=== PATIENT | male | born 1970 | race Caucasian/White ===

== ENCOUNTER 2017-05-14 16:45 | Emergency (ER) | payer SELFPAY ==
[2017-05-14] MEDS ORDERED: KETOROLAC TROMETHAMINE 60 MG/2 ML VIAL IM ONE ×2 (16:57→17:09)
--- NOTE | 2017-05-14 17:09 | ERNOTE ---
Lower Extremity HPI - General Lower Extremities Pain: knee: right Time Seen by Provider: 05/14/17 16:48 Source: patient Exam Limitations: no limitations - Immun/Allergies/Home Medications Immunizations: IMMUNIZATION HX Immunizations Up to Date Yes History of Influenza Vaccine No Hx Pneumococcal Vaccination No Allergies/Adverse Reactions: Allergies Allergy/AdvReac Type Severity Reaction Status Date / Time Penicillins Allergy Mild Verified 05/14/17 16:57 Home Medications: HOME MEDICATIONS Naproxen [Naprosyn] 500 mg PO BID #60 tablet 05/14/17 [Last Taken Unknown] - History of Present Illness Narrative: Patient started to have right knee pain two days ago. He denies any injury. he has a history of gout and also had to have his right knee 'washed out in the OR ' a few years ago. He has been out of his allopurinol for a few months but when the pain started took a few of his mothers allopurinol, tried ibuprofen yesterday with minimal relieve, rarely drinks but had a beer about 3-4 days ago. Date (Duration): 05/12/17 Occurred: other Method of Injury: Reports: no apparent injury Modifying Factors - (Improves): Reports: pain medication, rest Modifying Factors - (Worsens): Reports: movement Associated Symptoms: Denies: unable to bear weight, snapping, popping sensation Other Injuries: Reports: none Subsequent Symptoms: Denies: sensory loss, numbness Prior Treament: Reports: similar symptoms before. Denies: recently seen Review of Systems - Review of Systems Constitutional: Present: chills. Absent: recent illness ENT: Absent: nose congestion, sore throat Respiratory: Absent: other Gastrointestinal/Abdominal: Absent: nausea, abdominal pain Genitourinary: Present: no symptoms reported Musculoskeletal: Present: See HPI Skin: Absent: rash Neurological: Absent: headache, weakness, numbness - Patient's Past Medical History Patient History - Medical: Other - gout Patient History - Cardiac/Respiratory: No pertinent hx Patient History - Cancer: No Hx of Cancer Patient History - Surgical Procedures: Other Patient History - Other: None - Social History Living Situations: home Abuse History: No History of abuse, Hx of Substance Use Psych History: No pertinent hx Smoking Status: Current every day smoker Have you smoked in the past 12 months: Yes Alcohol Use: occasionally Drug Use: marijuana - Immunizations Immunizations Up to Date: Yes Hx Pneumococcal Vaccination: No History of Influenza Vaccine: No Physical Exam - Physical Exam General Appearance: Present: wd/wn, alert, no apparent distress Respiratory: Present: no respiratory distress, normal breath sounds, no accessory muscle use, lungs clear Cardiovascular/Chest: Present: regular rate, rhythm, no murmur Extremity Exam: Present: normal except - - left knee mild erythema, joint effusion, mild tenderness throughout, pain on ROM, , no edema Neurological Exam: Present: alert, oriented, normal mood/affect, no motor/ sensory deficits Skin Exam: Present: normal color, warm/dry ED Progress - Results and Orders Patient's Lab Results:: I have reviewed the patient's lab results. - Vital Signs Patient's Vital Signs:: I have reviewed the patient's vital signs. Vital Signs: Vital Signs 05/14/17 16:49 Temperature 37.3 C Pulse Rate 94 Respiratory 16 Rate Blood Pressure 145/88 O2 Sat by Pulse 97 Oximetry - X-Ray X-Ray #1 X-Ray: knee - effusion, no acute bony changes Interpretation: Interp. by me - Progress/Reassessment Chief Complaint: Lower Extremity Pain/ Injury Progress Note-Subjective: 05/14/17 17:34 Patient right knee was aspirated: skin cleaned with betaiodine, sterile technique used, local with 1% lidocaine knee aspirated with 16 gauge needle, 20ml of serous fluid aspirated patient tolerated procedure well 05/14/17 18:43 better after toradol discussed test results and follow up Departure Clinical Impression: Knee effusion, right, Arthritis - Departure Disposition: Home self-care Condition: Good Instructions: Arthritis, [id number] Additional Instructions: keep the knee wrapped for support take the naproxen for pain, you may take tylenol in addition to that but no ibuprofen if you don't get better over the next 3-4 days call the orthopedic clinic for follow up Referrals: Mal Chang, PAC [[facility]] - Prescriptions: Naproxen [Naprosyn] 500 mg PO BID #60 tablet
[2017-05-14 17:10] LABS: Hematocrit 41.3 % (42.0-52.0); Mean Cell Volume 89.2 fl (78-100); Mean Corpuscular Hemoglobin 30.2 pg (27-31); Mean Corpuscular Hgb Conc 33.9 g/dl (32-36); Mean Platelet Volume 9.9 fl (6.0-9.5); Neutrophil # 7.4 K/mm3 (1.3-6.0); Neutrophil % 64.6 % (42-75.0); Platelet Count 267 K/mm3 (150-450); Red Blood Count 4.63 M/mm3 (4.7-6.0); Red Cell Distribution Width 13.7 % (11.5-14.0); White Blood Count 11.5 K/mm3 (4.0-10.5)
[2017-05-14 17:23] LABS: Albumin * 3.6 gm/dl (3.4-5.0); Anion Gap 12.1 mmol/L (6.8-13.8); BUN/Creatinine Ratio 8.1 (9.0-21.6); Bilirubin, Total 0.5 mg/dL (0.0-1.1); CRP 5.5 mg/dL (0.0-0.9); Ca. Corrected For Albumin 8.7 mg/dL (8.4-10.2); Calcium * 8.7 mg/dL (7.9-10.9); Carbon Dioxide 30.7 mmol/L (24-32.6); Potassium 3.8 mmol/L (3.4-4.6); Total Protein 7.2 gm/dL (6.2-8.2); Uric Acid 5.1 mg/dL (2.6-7.2)
[2017-05-14 18:12] LABS: Body Fluid WBC 956 /uL
[2017-05-14 18:58] VITALS: BP 130/70
[2017-05-14 20:02] LABS: Body Fluid Appearance CLEAR (CLEAR); Body Fluid Color YELLOW (COLORLESS)
== END 2017-05-14 18:45 | disposition home or self-care (01) ==
LOC: ER 16:45
PROC: 0S9C3ZZ Drainage of Right Knee Joint, Percutaneous Approach (ICD-10-PCS; principal; 2017-05-14)
DX: M25.461 Effusion, right knee (principal); M19.90 Unspecified osteoarthritis, unspecified site; F17.200 Nicotine dependence, unspecified, uncomplicated

== ENCOUNTER 2019-04-09 19:32 | Observation (INO) ==
[2019-04-09] MEDS ORDERED: NITROGLYCERIN 0.4 MG/TAB BTL SL PRN (19:42)
--- NOTE | 2019-04-09 19:51 | ERNOTE ---
Chest Pain/Cardiac HPI Date of Service: 04/09/19 Chief Complaint: Chest Pain Time Seen by Provider: 04/09/19 19:34 Source: patient Exam Limitations: no limitations Immunizations: IMMUNIZATION HX Immunizations Up to Date Yes History of Influenza Vaccine Yes Hx Pneumococcal Vaccination No Allergies/Adverse Reactions: Allergies Penicillins Allergy (Mild, Verified 04/09/19 19:42) rash, hives Home Medications: HOME MEDICATIONS allopurinol 300 mg tablet 300 mg PO DAILY #30 tab 10/28/18 [Last Taken Unknown] Aspirin [Aspirin Chewable] 81 mg PO DAILY 01/06/19 [Last Taken Unknown] Clopidogrel Bisulfate [Plavix] 75 mg PO DAILY 01/06/19 [Last Taken Unknown] Furosemide [Lasix] 40 mg PO DAILY 01/06/19 [Last Taken Unknown] Propranolol HCl [Inderal] 10 mg PO BID 01/22/19 [Last Taken Unknown] desvenlafaxine succinate ER 25 mg tablet,extended release 24 hr 25 mg PO HS #30 tab 02/17/19 [Last Taken Unknown] mirtazapine 15 mg tablet See Rx Instructions .ROUTE .COMPLEX #30 tablet 03/05/19 [Last Taken Unknown] mirtazapine 30 mg tablet 15 mg PO HS #30 tab 03/05/19 [Last Taken Unknown] olanzapine 5 mg tablet See Rx Instructions .ROUTE .COMPLEX #30 tablet 03/05/19 [Last Taken Unknown] temazepam 30 mg capsule 30 mg PO PRN PRN #30 cap 03/05/19 [Last Taken Unknown] Pain Score #1 Pain Score: 4 Narrative: The patient is a 48 year old male who presents for left anterior chest pain which has been present since 1699. There are associated symptoms of dyspnea and dizziness. The patient reports left anterior chest pain, 10/30. There are no alleviating factors. There are aggravating factors of activity. Previous treatments have included: Nitro and ASA 325mg po given by EMS [employer]. Patient states Nitro aided with pain. The past medical history includes: depression, HLD, anxiety and DM. Patient reports 2 month post aortic valve replacement. The social history is positive for current tobacco use. The patient has had no ill contacts. Patient states he was up making supper when he had abrupt onset of dizziness and near syncope. Patient states he ate supper thinking it would help with symptoms and then developed chest pain and dyspnea. Patient states he began coughing to the point "he was unable to catch his breath". Review of Systems - Review of Systems Constitutional: Present: no symptoms reported. Absent: recent illness, fever, fatigue EYE: Present: no symptoms reported ENT: Present: no symptoms reported. Absent: ear pain, nasal drainage, sore throat Respiratory: Present: shortness of breath, cough Cardiology: Present: chest pain Gastrointestinal/Abdominal: Present: no symptoms reported. Absent: nausea, vomiting, diarrhea, abdominal pain, eating less, drinking less Genitourinary: Present: no symptoms reported. Absent: dysuria Musculoskeletal: Present: no symptoms reported Skin: Present: no symptoms reported. Absent: rash Neurological: Present: dizziness/light-headedness All Other Systems: All systems neg except as marked Medical History (Updated 03/07/19 @ 22:36 by Houston Garza MD) Type II diabetes mellitus (Chronic) Hyperlipidemia (Chronic) Insomnia (Chronic) Abdominal bloating (Acute) Started after his aortic valve deployment. Anxiety Cardiac abnormality Constipation Depression Gout Onset Date: Unknown Headache Hyperlipidemia Insomnia Irregular heart beat Left knee pain Onset Date: ~05/2018 Surgical History: Surgical History (Updated 01/09/19 @ 18:09 by Sourav Esquivel DO) Encounter for follow-up for aortic valve replacement (Acute) Aortic valve replaced (Resolved) Onset Date: 12/2018 H/O heart artery stent (Acute) Onset Date: ~01/02/19 History of right knee surgery Onset Date: Unknown Family History: Family History (Updated 06/24/18 @ 08:53 by Lilli Christopher) Mother Arthritis Diabetes Gout Hypertension CVA (cerebral vascular accident) Brother Gout Sister Arthritis Other No pertinent family history Social History: (Last Reviewed 04/09/19 @ 19:48 by LOUISA Paulino) Social History: Marital status: Single household members: children current occupational status: unemployed Service: No Tobacco: Smoking Status: Current every day smoker tobacco type: cigarettes Smoking cigarettes per day: 10.0 Smoking packs per day: 0.5 Alcohol: alcohol intake: former Substance Use: substance use type: does not use Dietary Habits: caffeine: Yes caffeine comment: coffe, soda, energy drinks Type: coffee, carbonated beverages Physical Exam - Physical Exam General Appearance: Present: wd/wn, alert, no apparent distress Head Exam: Present: normal inspection, no evidence of injury Eye Exam: Normal inspection: bilateral Neck: Present: normal inspection Respiratory: Present: no respiratory distress, no accessory muscle use, chest tenderness - left anterior chest, decreased breath sounds Cardiovascular/Chest: Present: no murmur, tachycardia Gastrointestinal/Abdominal: Present: normal bowel sounds, nontender, nondistended, soft, no organomegaly Extremity Exam: Present: no edema Neurological Exam: Present: alert, oriented, normal mood/affect, no motor /sensory deficits Skin Exam: Present: normal color, warm/dry Progress - Date and Time Seen: Date and Time: 04/09/19 21:15 Discussed case with , will admit for observation chest pain. - Results and Orders Patient's Lab Results:: I have reviewed the patient's lab results. - Vital Signs Patient's Vital Signs:: I have reviewed the patient's vital signs. Vital Signs: Vital Signs 04/09/19 19:38 Temperature 37.1 C Pulse Rate 101 H Respiratory Rate 17 Blood Pressure 120/84 O2 Sat by Pulse Oximetry 94 - EKG EKG #1 EKG: NSR EKG read: Reviewed by me - X-Ray X-Ray #1 X-Ray: chest Interpretation: Reviewed by me X-ray Comments: No acute cardiopulmonary abnormalities. - Progress/Reassessment Chief Complaint: Chest Pain Progress:: Improved Progress Note-Subjective: 04/09/19 21:15 2/10 left anterior chest pain after administration of Nitro SL. Departure Clinical Impression: Chest pain Qualifiers: Chest pain type: unspecified Qualified Code(s): R07.9 - Chest pain, unspecified - Departure Disposition: Still a patient Condition: Good
[2019-04-09 20:06] LABS: Hemoglobin 14.3 gm/dL (13.5-18.0); Mean Cell Volume 88.7 fl (78-100); Mean Corpuscular Hemoglobin 29.5 pg (27-31); Mean Corpuscular Hgb Conc 33.3 g/dl (32-36); Mean Platelet Volume 9.6 fl (8-11.3); Neutrophil # 5.9 K/mm3 (1.3-6.0); Neutrophil % 54.6 % (42-75.0); Platelet Count 230 K/mm3 (150-450); Red Blood Count 4.85 M/mm3 (4.7-6.0); Red Cell Distribution Width 14.5 % (11.5-14.0); White Blood Count 10.9 K/mm3 (4.0-10.5)
[2019-04-09 20:15] LABS: Prothrombin Time (Patient) 10.1 Seconds (9.1-10.7)
[2019-04-09 20:17] LABS: INR 1.02 INR (0.92-1.08); Partial Thrombolplastin Time 26.6 Seconds (24-32)
[2019-04-09 20:21] LABS: ALT 80 U/L (19-67); AST 54 U/L (0-48); Albumin * 3.6 gm/dl (3.4-5.0); Alkaline Phosphatase * 115 U/L (50-170); Anion Gap 14.1 mmol/L (6.8-13.8); BUN/Creatinine Ratio 7.6 (9.0-21.6); Bilirubin, Total 0.2 mg/dL (0.0-1.1); Blood Urea Nitrogen 8 mg/dL (6-23); Ca. Corrected For Albumin 8.7 mg/dL (8.4-10.2); Calcium * 8.7 mg/dL (7.9-10.9); Carbon Dioxide 27.9 mmol/L (24-32.6); Chloride 103 mmol/L (97-106); Glucose * 142 mg/dL (70-110); Sodium 142 mmol/L (132-142); Total Protein 6.8 gm/dL (6.2-8.2)
[2019-04-09 20:22] LABS: Troponin I Less than 0.017 ng/mL (0.00-0.10)
[2019-04-09 20:52] LABS: Urine Bilirubin Negative (NEGATIVE); Urine Blood Negative /ul (NEGATIVE); Urine Ketone Negative (NEGATIVE); Urine Nitrite Negative (NEGATIVE); Urine Protein Negative (NEGATIVE); Urine Specific Gravity <=1.005 SP.GR. (1.005-1.030); Urine Urobilinogen Normal (NORMAL)
[2019-04-09 20:58] LABS: Urine Appearance Clear (CLEAR); Urine Bacteria None Seen; Urine Color Yellow; Urine RBC None Seen /hpf (0-5); Urine WBC None Seen /hpf (0-5)
[2019-04-09] MEDS ORDERED: ROSUVASTATIN CALCIUM 20 MG TABLET PO STA (21:32)
--- NOTE | 2019-04-10 08:34 | HPDIS ---
Chief Complaint - Chief Complaint Date of Service: 04/10/19 Time of Service: 08:34 Chief Complaint: CHEST PAIN History of Present Illness: Sourav Novak is a 48-year-old white male patient of Dr. Esquivel, with past medical history of aortic valve replacement, anxiety and depression, diabetes mellitus type 2, who was admitted on 04/09/2019 because of chest pain. His chest pain was pressure-like 4/10 substernal radiating to his jaw associated with dyspnea and dizziness. The patient said that 1-1/2 hours before sitting down for dinner the patient took an energy drink which is 2-3 times stronger than red bull. As he was about to start eating, he started getting dizzy as if he was going to pass out, felt he could not take his breath, and then developed the chest pain. EMS was called and he got nitro and aspirin and then when he got to the emergency room and got again aspirin. His EKG showed normal sinus rhythm, inferior myocardial infarction, age indeteminate and his troponin was negative. He was then admitted for observation. His follow-up troponin was negative and patient has been chest pain-free. He is stable to be discharged today and will schedule him as stress test as an outpatient. He will follow-up with his [facility] physician Dr. Esquivel. Medical History (Updated 04/10/19 @ 09:01 by Zia Sams MD) Type II diabetes mellitus (Chronic) Hyperlipidemia (Chronic) Insomnia (Chronic) Abdominal bloating (Acute) Started after his aortic valve deployment. Anxiety Cardiac abnormality Constipation Depression Gout Onset Date: Unknown Headache Hyperlipidemia Insomnia Irregular heart beat Left knee pain Onset Date: ~05/2018 Surgical History: Surgical History (Updated 04/10/19 @ 09:01 by Zia Sams MD) Encounter for follow-up for aortic valve replacement (Acute) Aortic valve replaced (Resolved) Onset Date: 12/2018 H/O heart artery stent (Chronic) Onset Date: ~01/02/19 History of right knee surgery Onset Date: Unknown Family History: Family History (Updated 06/24/18 @ 08:53 by Lilli Christopher) Mother Arthritis Diabetes Gout Hypertension CVA (cerebral vascular accident) Brother Gout Sister Arthritis Other No pertinent family history Social History: (Last Reviewed 04/09/19 @ 19:48 by LOUISA Paulino) Social History: Marital status: Single household members: children current occupational status: unemployed Service: No Tobacco: Smoking Status: Current every day smoker tobacco type: cigarettes Smoking cigarettes per day: 10.0 Smoking packs per day: 0.5 Alcohol: alcohol intake: former Substance Use: substance use type: does not use Dietary Habits: caffeine: Yes caffeine comment: coffe, soda, energy drinks Type: coffee, carbonated beverages Review Of Systems (GEN) - Review of Systems Generalized/Overall Review: Absent: Weakness, Chills, Fever EENTM: Absent: Blurred Vision Respiratory: Present: Shortness of Breath. Absent: Cough Cardiac: Present: Chest Pain. Absent: Edema, Palpitations Abdominal: Absent: Nausea, Vomiting Genitourinary: Absent: Urgency, Frequency Musculoskeletal: Absent: Joint Pain, Back Pain Neurological: Absent: Headache Endocrine: Absent: Intolerance to Cold, Intolerance to Heat Immunizations: IMMUNIZATION HX Immunizations Up to Date Yes History of Influenza Vaccine Yes Hx Pneumococcal Vaccination No Allergies/Adverse Reactions: Allergies Allergy/AdvReac Type Severity Reaction Status Date / Time Penicillins Allergy Mild rash, hives Verified 04/09/19 19:42 Home Medications: HOME MEDICATIONS allopurinol 300 mg tablet 300 mg PO DAILY #30 tab 10/28/18 [Last Taken Unknown] Aspirin [Aspirin Chewable] 81 mg PO DAILY 01/06/19 [Last Taken Unknown] Clopidogrel Bisulfate [Plavix] 75 mg PO DAILY 01/06/19 [Last Taken Unknown] Furosemide [Lasix] 40 mg PO DAILY 01/06/19 [Last Taken Unknown] Propranolol HCl [Inderal] 10 mg PO BID 01/22/19 [Last Taken Unknown] desvenlafaxine succinate ER 25 mg tablet,extended release 24 hr 25 mg PO HS #30 tab 02/17/19 [Last Taken Unknown] mirtazapine 15 mg tablet See Rx Instructions .ROUTE .COMPLEX #30 tablet 03/05/19 [Last Taken Unknown] mirtazapine 30 mg tablet 15 mg PO HS #30 tab 03/05/19 [Last Taken Unknown] olanzapine 5 mg tablet See Rx Instructions .ROUTE .COMPLEX #30 tablet 03/05/19 [Last Taken Unknown] temazepam 30 mg capsule 30 mg PO PRN PRN #30 cap 03/05/19 [Last Taken Unknown] Nitroglycerin [Nitrostat] 0.4 mg SUBLINGUAL Q5MIN PRN #14 btl 04/10/19 [Last Taken Unknown] Exam - Exam Vital Signs: Vital Signs - Last Taken Temp 36.4 C 04/10/19 07:02 Pulse 64 04/10/19 07:02 Resp 18 04/10/19 07:02 BP 128/97 H 04/10/19 07:02 Pulse Ox 97 04/10/19 07:02 Constitutional: Present: Alert, Oriented x3, Cooperative ENT Exam: Present: hearing grossly normal Eye Exam: bilateral eye: normal inspection, PERRL, EOMI Neck: Present: supple. Absent: lymphadenopathy (R), lymphadenopathy (L) Respiratory: Present: normal breath sounds, No rales, No wheezing Cardiovascular/Chest: Present: regular rate, rhythm, no JVD, no murmur Abdomen: Present: Normal bowel sounds, soft, nontender, nondistended Extremity: Present: no pedal edema, no calf tenderness Diagnostic Studies: Abnormal Lab Results 04/09/19 04/09/19 Range/Units 20:00 20:00 WBC 10.9 H (4.0-10.5) K/mm3 RDW 14.5 H (11.5-14.0) % Immature Gran % (Auto) 0.60 H (0.001-0.429) % Immature Gran # (Auto) 0.07 H (0.000-0.0310) K/mm3 Lymphocytes # 3.80 H (1.5-3.5) k/mm3 Plasma Sodium 143 H (130-142) mmol/L Potassium 3.0 L (3.4-4.6) mmol/L Anion Gap 14.1 H (6.8-13.8) mmol/L BUN/Creatinine Ratio 7.6 L (9.0-21.6) Random Glucose 142 H (70-110) mg/dL AST 54 H (0-48) U/L ALT 80 H (19-67) U/L Laboratory Results WBC 10.9 K/mm3 (4.0-10.5) H 04/09/19 20:00 RBC 4.85 M/mm3 (4.7-6.0) 04/09/19 20:00 Hgb 14.3 gm/dL (13.5-18.0) 04/09/19 20:00 Hct 43.0 % (42.0-52.0) 04/09/19 20:00 MCV 88.7 fl (78-100) 04/09/19 20:00 MCH 29.5 pg (27-31) 04/09/19 20:00 MCHC 33.3 g/dl (32-36) 04/09/19 20:00 RDW 14.5 % (11.5-14.0) H 04/09/19 20:00 Plt Count 230 K/mm3 (150-450) 04/09/19 20:00 MPV 9.6 fl (8-11.3) 04/09/19 20:00 Immature Gran % (Auto) 0.60 % (0.001-0.429) H 04/09/19 20:00 Immature Gran # (Auto) 0.07 K/mm3 (0.000-0.0310) H 04/09/19 20:00 54.6 % (42-75.0) 04/09/19 20:00 35.0 % (20-51) 04/09/19 20:00 6.9 % (0.0-9) 04/09/19 20:00 2.2 % (0.0-3.0) 04/09/19 20:00 0.7 % (0.0-1.0) 04/09/19 20:00 Nucleated RBC % 0.0 k/mm3 (0-1) 04/09/19 20:00 5.9 K/mm3 (1.3-6.0) 04/09/19 20:00 3.80 k/mm3 (1.5-3.5) H 04/09/19 20:00 0.8 k/mm3 (0.0-1.0) 04/09/19 20:00 0.2 k/mm3 (0.0-0.7) 04/09/19 20:00 Absolute Basophils 0.1 k/mm3 (0.0-0.1) 04/09/19 20:00 PT 10.1 Seconds (9.1-10.7) 04/09/19 20:00 INR (Anticoag Therapy) 1.02 INR (0.92-1.08) 04/09/19 20:00 PTT ([place]) 26.6 Seconds (24-32) 09/18/19 20:00 Sodium 142 mmol/L (132-142) 04/09/19 20:00 143 mmol/L (130-142) H 04/09/19 20:00 Potassium 3.0 mmol/L (3.4-4.6) L 04/09/19 20:00 Chloride 103 mmol/L (97-106) 04/09/19 20:00 Carbon Dioxide 27.9 mmol/L (24-32.6) 04/09/19 20:00 14.1 mmol/L (6.8-13.8) H 04/09/19 20:00 BUN 8 mg/dL (6-23) 04/09/19 20:00 1.05 mg/dL (0.4-1.4) 04/09/19 20:00 Est GFR (Non-Af Amer) 79 mL/min (60-130) D 04/09/19 20:00 7.6 (9.0-21.6) L 04/09/19 20:00 142 mg/dL (70-110) H 04/09/19 20:00 Calcium 8.7 mg/dL (7.9-10.9) 04/09/19 20:00 Calcium Adj for Albumin 8.7 mg/dL (8.4-10.2) 04/09/19 20:00 0.2 mg/dL (0.0-1.1) 04/09/19 20:00 AST 54 U/L (0-48) H 04/09/19 20:00 ALT 80 U/L (19-67) H 04/09/19 20:00 115 U/L (50-170) 04/09/19 20:00 Less than 0.017 ng/mL (0.00-0.10) 04/10/19 02:00 C-Reactive Prot, Quant Less than 0.2 mg/dL (0.0-0.9) 04/09/19 20:00 6.8 gm/dL (6.2-8.2) 04/09/19 20:00 3.6 gm/dl (3.4-5.0) 04/09/19 20:00 Yellow 04/09/19 20:44 Clear (CLEAR) 04/09/19 20:44 6.0 pH (5.0-7.0) 04/09/19 20:44 Ur Specific [place] <=1.005 SP.GR. (1.005-1.030) 04/09/19 20:44 Negative mg/dL (NEGATIVE) 04/09/19 20:44 Negative mg/dL (NEGATIVE) 04/09/19 20:44 Negative mg/dL (NEGATIVE) 04/09/19 20:44 Negative /ul (NEGATIVE) 04/09/19 20:44 Negative (NEGATIVE) 04/09/19 20:44 Negative mg/dl (NEGATIVE) 04/09/19 20:44 Normal EU/dl (NORMAL) 04/09/19 20:44 Ur Leukocyte Esterase Negative /ul (NEGATIVE) 04/09/19 20:44 None seen /hpf (0-5) 04/09/19 20:44 None seen /hpf (0-5) 04/09/19 20:44 Ur Epithelial Cells None seen /hpf (0-5) 04/09/19 20:44 None seen (NONE) 04/09/19 20:44 No culture indicated 04/09/19 20:44 Assessment/Plan - Assessment/Plan (1) Chest pain Assessment: MIGUEL ruled out. Problem: Ruled-out Qualifiers: Chest pain type: unspecified Qualified Code(s): R07.9 - Chest pain, unspecified (2) H/O heart artery stent Problem: Chronic (3) S/P TAVR (transcatheter aortic valve replacement) Problem: Chronic (4) Type II diabetes mellitus Problem: Chronic Qualifiers: Diabetes mellitus care home insulin use: without care home use Diabetes mellitus complication status: without complication Qualified Code(s): E11.9 - Type 2 diabetes mellitus without complications (5) Hyperlipidemia Problem: Chronic Qualifiers: Hyperlipidemia type: pure hypercholesterolemia Qualified Code(s): E78.00 - Pure hypercholesterolemia, unspecified; E78.0 - Pure hypercholesterolemia (1) Chest pain Problem: Ruled-out Qualifiers: Chest pain type: unspecified Qualified Code(s): R07.9 - Chest pain, unspecified (2) H/O heart artery stent Problem: Chronic (3) S/P TAVR (transcatheter aortic valve replacement) Problem: Chronic (4) Type II diabetes mellitus Problem: Chronic Qualifiers: Diabetes mellitus intermediate project manager insulin use: without care home use Diabetes mellitus complication status: without complication Qualified Code(s): E11.9 - Type 2 diabetes mellitus without complications (5) Hyperlipidemia Problem: Chronic Qualifiers: Hyperlipidemia type: pure hypercholesterolemia Qualified Code(s): E78.00 - Pure hypercholesterolemia, unspecified; E78.0 - Pure hypercholesterolemia Date of Discharge:: 04/10/19 Description of Stay: Sourav Novak is a 48-year-old white male patient of Dr. Esquivel, with past medical history of aortic valve replacement, anxiety and depression, diabetes mellitus type 2, who was admitted on 04/09/2019 because of chest pain. His chest pain was pressure-like 4/10 substernal radiating to his jaw associated with dyspnea and dizziness. The patient said that 1-1/2 hours before sitting down for dinner the patient took an energy drink which is 2-3 times stronger than red bull. As he was about to start eating, he started getting dizzy as if he was going to pass out, felt he could not take his breath, and then developed the chest pain. EMS was called and he got nitro and aspirin and then when he got to the emergency room and got again aspirin. His EKG showed normal sinus rhythm, inferior myocardial age indetermonate and his troponin was negative. He did have Q waves in inferior leads with his prior EKG in 2018. He was then admitted for observation. His follow-up troponin was negative and patient has been chest pain-free. He is stable to be discharged today and will schedule him as stress test as an outpatient. He will follow-up with his primary care physician Dr. Esquivel. Procedures Performed: none Results and Findings: Lab Pending Results 04/09/19 20:00: WBC 10.9 H, RBC 4.85, Hgb 14.3, Hct 43.0, MCV 88.7, MCH 29.5, MCHC 33.3, RDW 14.5 H, Plt Count 230, MPV 9.6, Immature Gran % (Auto) 0.60 H, Immature Gran # (Auto) 0.07 H, Neutrophils % 54.6, Lymphocytes % 35.0, Monocytes % 6.9, Eosinophils % 2.2, Basophils % 0.7, Nucleated RBC % 0.0, Neutrophils # 5.9, Lymphocytes # 3.80 H, Monocytes # 0.8, Eosinophils # 0.2, Absolute Basophils 0.1 04/09/19 20:00: PT 10.1, INR (Anticoag Therapy) 1.02, PTT ([place]) 26.6 04/09/19 20:00: Sodium 142, Plasma Sodium 143 H, Potassium 3.0 L, Chloride 103, Carbon Dioxide 27.9, Anion Gap 14.1 H, BUN 8, Creatinine 1.05, Est GFR (Non-Af Amer) 79 D, BUN/Creatinine Ratio 7.6 L, Random Glucose 142 H, Calcium 8.7, Calcium Adj for Albumin 8.7, Total Bilirubin 0.2, AST 54 H, ALT 80 H, Alkaline Phosphatase 115, Troponin I Less than 0.017, C-Reactive Prot, Quant Less than 0.2, Total Protein 6.8, Albumin 3.6 04/09/19 20:44: Urine Color Yellow, Urine Appearance Clear, Urine pH 6.0, Ur Specific [place] <=1.005, Urine Protein Negative, Urine Glucose (UA) Negative, Urine Ketones Negative, Urine Blood Negative, Urine Nitrate Negative, Urine Bilirubin Negative, Urine Urobilinogen Normal, Ur Leukocyte Esterase Negative, Urine RBC None seen, Urine WBC None seen, Ur Epithelial Cells None seen, Urine Bacteria None seen, Urine Culture Comments No culture indicated 04/10/19 02:00: Troponin I Less than 0.017 Discharge Location: Home Disposition: Home self-care Condition: Good Discharge Activity: Activity as tolerated Discharge Diet: Consistent carbs, Low fat/chol Referrals: Sourav Esquivel DO [Primary Care Provider] - Additional Patient Instructions (free text): Follow up with PCP in 1 week. Please schedule a nuclear treadmill stress test outpatient. Prescriptions (Any new or edited meds): Nitroglycerin [Nitrostat] 0.4 mg SUBLINGUAL Q5MIN PRN #14 btl PRN Reason: Chest Pain Complete Home Medications List: Complete Home Medication List: allopurinol 300 mg tablet 300 mg PO DAILY #30 tab 10/28/18 Aspirin [Aspirin Chewable] 81 mg PO DAILY 01/06/19 Clopidogrel Bisulfate [Plavix] 75 mg PO DAILY 01/06/19 Furosemide [Lasix] 40 mg PO DAILY 01/06/19 Propranolol HCl [Inderal] 10 mg PO BID 01/22/19 desvenlafaxine succinate ER 25 mg tablet,extended release 24 hr 25 mg PO HS #30 tab 02/17/19 mirtazapine 15 mg tablet See Rx Instructions .ROUTE .COMPLEX #30 tablet 03/05/19 mirtazapine 30 mg tablet 15 mg PO HS #30 tab 03/05/19 olanzapine 5 mg tablet See Rx Instructions .ROUTE .COMPLEX #30 tablet 03/05/19 temazepam 30 mg capsule 30 mg PO PRN PRN #30 cap 03/05/19 Nitroglycerin [Nitrostat] 0.4 mg SUBLINGUAL Q5MIN PRN #14 btl 04/10/19 Amb Orders for Discharge: NUC Treadmill Stress Test Time Frame: 1 Week, Location: Radiology
[2019-04-10 11:30] VITALS: BP 138/92
== END 2019-04-10 11:01 | disposition home or self-care (01) ==
LOC: ER 19:32 → MS 19:32
PROVIDERS: ADMIT Internal Medicine; ATTEND Family Medicine
CPT/HCPCS: 36415; 71020; 71046; 80053; 81001; 84484; 85025; 85610; 85730; 86140; 93005; 99284; G0378